=== PATIENT | female | born 1955 | race Two or more races ===

== ENCOUNTER 2025-02-16 05:13 | Day surgery (SDC) | payer OTHER ==
[~2025-02-16 05:13] MED LIST: CANDESARTAN CILE8 MG PO; LEVOTHYROXINE100 MC1 PO; LEVOTHYROXINE88 MC1 PO; ROSUVASTATIN CAL5 MG PO; TOPROL XL25 M1 PO
[2025-02-16] MEDS ORDERED: CEFAZOLIN SODIUM 1,000 MG VIAL ONE (08:10)
[2025-02-16] MEDS ORDERED: GENTAMICIN SULFATE 40 MG/ML VIAL ONE (09:05)
[2025-02-16] MEDS ORDERED: MACROBID 100 M100 MG PO (11:07)
[2025-02-16] MEDS ORDERED: TRAM1TAB98 PO (11:08)
[2025-02-16] MEDS ORDERED: MORPHINE SULFATE 4 MG/ML VIAL IV ONE ×2 (14:30→14:50)
[2025-02-16] MEDS ORDERED: ENALAPRILAT DIHYDRATE 1.25 MG/ML VIAL IV ONE (14:40)
== END 2025-02-16 16:45 | disposition home or self-care (01) ==
LOC: CIR.AMB 05:13
PROVIDERS: ATTEND Obstetrics & Gynecology Gynecology
DX: N81.11 Cystocele, midline (principal); N81.5 Vaginal enterocele; N81.6 Rectocele; E03.8 Other specified hypothyroidism